=== PATIENT | male | born 1980 | race Caucasian/White ===

== ENCOUNTER 2017-05-09 14:48 | Emergency (ER) | payer OTHER ==
[2017-05-09 14:59] VITALS: BP 142/64
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
[2017-05-09] MEDS ORDERED: MOTRIN PO ONE (16:23)
== END 2017-05-09 16:49 | disposition home or self-care (01) ==
LOC: ED 14:48
DX: M54.5 Low back pain (principal); F17.200 Nicotine dependence, unspecified, uncomplicated; V43.52XA Car driver injured in collision with other type car in traffic accident, initial encounter; Y93.89 Activity, other specified; Y92.89 Other specified places as the place of occurrence of the external cause; Y99.8 Other external cause status
CPT/HCPCS: 99282